=== PATIENT | female | born 1990 | race Caucasian/White ===

== ENCOUNTER → 2016-04-10 | Outpatient (CLI) | payer BC | LOC: GMAB 17:14 | PROVIDERS: ATTEND Family Medicine | DX: R07.2 Precordial pain (principal) ==

== ENCOUNTER → 2017-06-13 | Outpatient (CLI) | payer BC | LOC: GMAB 10:28 | PROVIDERS: ATTEND Family Medicine | DX: Z00.00 Encounter for general adult medical examination without abnormal findings (principal); R22.41 Localized swelling, mass and lump, right lower limb ==

== ENCOUNTER → 2017-06-18 | Outpatient (CLI) | payer BC ==
--- NOTE | 2017-06-19 08:32 | CT ---
EXAM DESCRIPTION: Chest w/Contrast : Computed Tomography. CLINICAL HISTORY: DEFORMITY OF [place]IC[place] COMPARISON: None. TECHNIQUE: Spiral-axial scans at 5.0 mm intervals through the lungs and thorax without IV contrast. 2.5 mm lung algorithm axial reconstructions. Coronal and sagittal 2.0 Mm reconstructions. 2.5 mm axial helical reconstructions with bone algorithm. No adverse reactions. Total Exam DLP: 753.71 mGy-cm. This exam was performed according to our departmental dose-optimization program which includes automated exposure control, adjustment of the mA and/or kV according to patient size and/or use of iterative reconstruction technique; to reduce radiation dose to as low as reasonably achievable (ALARA). FINDINGS: No soft tissue mass around the right clavicle. No supraclavicular lymph nodes. Normal bone density of the clavicle. AC joint and sternoclavicular joint are unremarkable. Anterior first and second ribs are unremarkable. Focal pleural thickening in the left lung base. No abnormal parenchymal nodules masses or infiltrates. No pleural effusion or pneumothorax. Homogeneous enhancement of the thyroid gland. No masses in the base of the neck or axillary regions. No enlarged lymph nodes in the bilateral hilum or mediastinum. No fluid in the included subdiaphragmatic peritoneal space. Gallbladder partially visualized. Normal size and enhancement of the spleen and adrenal glands. Spine and other osseous structures of the thorax and included shoulders are unremarkable. IMPRESSION: 1. Normal bone density and morphology of the right clavicle. Right AC joint and right sternoclavicular joint are unremarkable. No surrounding soft tissue mass. 2. No lung abnormalities. Normal soft tissues in the base of the neck, axillary regions, lungs and mediastinum. Electronically signed by: Nathan James MD 06/19/2017 8:31 AM CDT
== END ==
LOC: CT 08:33
PROVIDERS: ATTEND Family Medicine
DX: M95.8 Other specified acquired deformities of musculoskeletal system (principal)

== ENCOUNTER → 2017-08-31 | Outpatient (CLI) | payer BC ==
--- NOTE | 2017-08-31 13:23 | CT ---
EXAM DESCRIPTION: Abdomen/Pelvis w/wo Contrast CLINICAL HISTORY: 27 years Female, HEMATURIA COMPARISON: None available. TECHNIQUE: Contiguous 3 mm axial images were obtained from the lung bases to the level of the proximal femora after the administration of intravenous and oral contrast. Sagittal and coronal reconstructions were reviewed. FINDINGS: THORAX: The imaged lower thorax demonstrates no gross abnormality. LIVER: The liver demonstrates normal size and density with no intrahepatic biliary ductal dilatation or focal masses. GALLBLADDER: Grossly unremarkable. PANCREAS: Appears normal with no cystic or solid lesions. SPLEEN: Normal ADRENAL GLANDS: Normal with no nodules or masses. KIDNEYS: Both kidneys enhance symmetrically with no hydronephrosis or nephrolithiasis or perinephric fluid collections. No focal masses are identified. The visualized ureters appear grossly unremarkable. STOMACH: The stomach is mildly distended with no gross abnormality. SMALL BOWEL: The small bowel loops demonstrate variable degrees of distention with no abnormal dilatation or other signs to suggest bowel obstruction. LARGE BOWEL: Mild constipation is noted. The appendix is not visualized, however no secondary signs to suggest acute appendicitis. No evidence of free intraperitoneal air or fluid. RETROPERITONEUM: The abdominal aorta is nonaneurysmal with no significant atherosclerosis. The inferior vena cava is normal in size and caliber. No abnormally enlarged retroperitoneal lymph nodes are identified. URINARY BLADDER: The urinary bladder is mildly distended with no gross abnormality The uterus and adnexa appear normal. ADDITIONAL FINDINGS: None. BONES: No significant degenerative changes are identified in the visualized bones. 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 No significant anterolisthesis. IMPRESSION: 1. Mild constipation. No acute process. 2. 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 This exam was performed according to our departmental dose-optimization program, which includes automated exposure control, adjustment of the mA and/or kV according to patient size and/or use of iterative reconstruction technique. Electronically signed by: Adelaide Lopez MD 08/31/2017 1:22 PM CDT
== END ==
LOC: CT 09:32
PROVIDERS: ATTEND Urology
DX: R31.29 Other microscopic hematuria (principal); K59.00 Constipation, unspecified

== ENCOUNTER → 2018-10-01 | Outpatient (CLI) | payer BC | LOC: LAB.O 15:34 | PROVIDERS: ATTEND Obstetrics & Gynecology | DX: Z34.01 Encounter for supervision of normal first pregnancy, first trimester (principal); Z3A.16 16 weeks gestation of pregnancy ==

== ENCOUNTER → 2019-12-31 | Outpatient (CLI) | payer BC, SELFPAY ==
--- NOTE | 2019-12-31 13:42 | CT ---
TECHNIQUE: Spiral CT examination of the neck performed. Multiplanar reformats performed. Intravenous contrast was utilized. This exam was performed according to our departmental dose-optimization program, which includes automated exposure control, adjustment of the mA and/or kV according to patient size and/or use of iterative reconstruction technique. CLINICAL HISTORY PROVIDED: [facility] COMPARISON: December 25, 2019 FINDINGS: Nasal Cavity: Unremarkable. Paranasal Sinuses: Unremarkable. Nasopharynx: Unremarkable. Oropharynx: Unremarkable. Oral Cavity: Unremarkable. Hypopharynx: Unremarkable. Larynx: Unremarkable. Trachea: Unremarkable. Thyroid: Unremarkable. Parotid Glands: Unremarkable. Submandibular Glands: Unremarkable. Carotids / Internal Jugular Veins: Unremarkable. Skull Base: Unremarkable. Visible Brain and Orbits: Unremarkable. Lymph Nodes: Unremarkable. Soft Tissue Mass / Abscess: None present. Incidental Findings: No suspicious mass adjacent the palpable marker in the mid left neck. IMPRESSION: No suspicious mass or adenopathy. Electronically signed by: Vincent Lorenzo MD 12/31/2019 1:40 PM CDT
== END ==
LOC: CT 08:36
PROVIDERS: ATTEND Family Medicine
DX: Z01.812 Encounter for preprocedural laboratory examination (principal); R22.9 Localized swelling, mass and lump, unspecified